=== PATIENT | female | born 1965 | race Caucasian/White ===

== ENCOUNTER 2017-07-14 18:13 | Emergency (ER) | payer BC, OTHER ==
[~2017-07-14] VITALS: Ht 154.9 cm; Wt 60.0 kg
[~2017-07-14 18:13] MED LIST: ACET325 PO; ALPR1 PO; CELE40TA PO; HYDR-3580 PO; IMIT50TA PO; KARI28TA PO; MELA5TAB8 PO; SERO150T PO; ZOLP1TAB32 PO
[2017-07-14 18:14] VITALS: BP 133/82; PULSE 91; RESP 14; TEMP 98.4; O2SAT 98
--- NOTE | 2017-07-14 19:18 | PD ---
HPI Chief Complaint: Injury Time Seen by Provider: 18:58 Travel History International Travel<30 days: No Contact w/Intl Traveler<30days: No Traveled to known affect area: No History of Present Illness HPI 52-year-old female here for evaluation of left lateral rib pain after mechanical slip and fall while at work yesterday evening. The patient works at [employer] and states that she slipped on the floor and her left lateral chest wall struck a metal counter. She denies head injury or LOC. She complains of continuous pain to her left lateral ribs which is moderate, worse with movement , palpation, and inspiration. She denies dyspnea. No cough or hemoptysis. She is not on any antiplatelets or anticoagulants. No abdominal pain. No other injuries. PFSH Past Medical History ?: Not Social History Tobacco Use: No Allergies-Medications (Allergen,Severity, Reaction): Coded Allergies: No Known Allergies (Unverified Adverse Reaction, Unknown, 07/14/17) Reported Meds & Prescriptions Reported Meds & Active Scripts Active Reported Xanax (Alprazolam) 1 Mg Tab 1 Mg PO Q8H PRN Citalopram (Citalopram Hydrobromide) 40 Mg Tab 40 Mg PO DAILY Review of Systems Except as stated in HPI: all other systems reviewed are Neg Physical Exam Narrative GENERAL: Well-developed, well-nourished, comfortable, no apparent distress. SKIN: Focused skin assessment warm/dry. No lacerations, abrasions, or ecchymosis. HEAD: Atraumatic. Normocephalic. EYES: Pupils equal and round. No scleral icterus. No injection or drainage. ENT: No nasal bleeding or discharge. Mucous membranes pink and moist. NECK: Trachea midline. No JVD. CARDIOVASCULAR: Regular rate and rhythm. No murmur appreciated. RESPIRATORY: No accessory muscle use. Clear to auscultation. Breath sounds equal bilaterally. GASTROINTESTINAL: Abdomen soft, non-tender, nondistended. MUSCULOSKELETAL: No obvious deformities. No clubbing. No cyanosis. No edema. Point tenderness to left lateral/posterior fourth rib without step-off, without crepitus, without paradoxical chest wall movements. No midline vertebral step- off or tenderness. NEUROLOGICAL: Awake and alert. No obvious cranial nerve deficits. Motor grossly within normal limits. Normal speech. PSYCHIATRIC: Appropriate mood and affect; insight and judgment normal. Data Data Last Documented VS Vital Signs Date Time Temp Pulse Resp B/P (MAP) Pulse Ox O2 Delivery O2 Flow Rate FiO2 07/14/17 20:47 07/14/17 18:14 98.4 91 14 98 Orders Orders Ribs, Uni (W/Exp Cxr-Min 3vw) (07/14/17 ) Ed Discharge Order (07/14/17 20:04) MDM Medical Decision Making Medical Screen Exam Complete: Yes Emergency Medical Condition: Yes Differential Diagnosis Rib contusion, rib fracture, pneumothorax, hemothorax, pulmonary contusion Narrative Course I offered the patient pain medication, however she has declined. Initial vital signs show heart rate 91, blood pressure 133/82, pulse ox 98% on room air, oral temp of 98.4F. Left rib/chest x-ray show no acute fracture, no pneumothorax, no hemothorax. Patient made aware of x-ray findings. She states she would like to go back to work, however is requesting light duty. I agree with this. She was advised to follow-up with her primary care physician this week. She was informed on when to return to the emergency department. She verbalizes understanding and agreement with plan. Diagnosis Primary Impression: Contusion of left chest wall Qualified Codes: S20.212A - Contusion of left front wall of thorax, initial encounter Referrals: Primary Care Physician 3 days Additional Instructions: Follow-up with your primary care physician this week. Return to the emergency department for worsening symptoms or any other concerns. Disposition: 01 DISCHARGE HOME Condition: Stable Pawan Meehan MD Jul 14, 2017 19:18
[2017-07-14] MEDS ORDERED: XANA1TAB2 PO (19:46)
[2017-07-14] MEDS ORDERED: CITA40TA4 PO (19:46)
--- NOTE | 2017-07-14 19:46 | RADRPT ---
EXAM DATE/TIME: 07/14/2017 19:19 [facility] COMPARISON: No previous studies available for comparison. INDICATIONS : Rib pain due to fall. MEDICAL HISTORY : None. SURGICAL HISTORY : None. ENCOUNTER: Initial ACUITY: 2 days PAIN SCORE: 7/10 LOCATION: Left ribs, axillary/lateral FINDINGS: Multiple views of the left ribs were performed. There is no evidence of displaced fracture. No dest ructive lesions or areas of periosteal thickening are seen. Expiratory view of the chest is negative for pneumothorax. The mediastinal structures are midline. CONCLUSION: No acute disease. Jerzy Huerta MD on July 14, 2017 at 19:44 Board Certified Radiologist. This report was verified electronically.
== END 2017-07-14 21:43 | disposition home or self-care (01) ==
LOC: NEPD 18:13
DX: S20.212A Contusion of left front wall of thorax, initial encounter (principal); W01.198A Fall on same level from slipping, tripping and stumbling with subsequent striking against other object, initial encounter; Y92.511 Restaurant or cafe as the place of occurrence of the external cause; Y99.0 Civilian activity done for income or pay
CPT/HCPCS: 71101; 99283